=== PATIENT | male | born 1955 | race African-American/Black ===

== ENCOUNTER 2016-10-05 09:47 | Inpatient (IN) | payer OTHER, MEDICAID ==
[~2016-10-05] VITALS: Ht 180.3 cm; Wt 115.1 kg
[2016-10-05 09:53] VITALS: BP 229/128; PULSE 94; RESP 22; TEMP 98.5
[2016-10-05 10:13] VITALS: BP 228/129; PULSE 92; O2SAT 98
[2016-10-05 10:23] LABS: BASOPHIL % 0.5 % (0.0-2.0); EOSINOPHIL # 0.1 TH/MM3 (0-0.4); EOSINOPHIL % 1.2 % (0.0-4.0); HEMATOCRIT 37.2 % (39.0-51.0); HEMO FLAGS DIFF FINAL; LYMPHOCYTE # 1.9 TH/MM3 (1.0-4.8); MEAN CELL VOLUME 92.4 FL (80.0-100.0); MEAN CORPUSCULAR HEMOGLOBIN 30.2 PG (27.0-34.0); MEAN CORPUSCULAR HGB CONC 32.7 % (32.0-36.0); MONO % 9.5 % (0.0-8.0); NEUT % 45.8 % (16.0-70.0); PLATELET COUNT 162 TH/MM3 (150-450); RED BLOOD COUNT 4.03 MIL/MM3 (4.50-5.90); RED CELL DISTRIBUTION WIDTH 13.5 % (11.6-17.2); WHITE BLOOD COUNT 4.3 TH/MM3 (4.0-11.0)
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
[2016-10-05] MEDS ORDERED: ONDANSETRON HCL 4 MG/2 ML VIAL IV PUSH ONE (10:30)
[2016-10-05] MEDS ORDERED: SODIUM CHLOR 0.9% 1000 ML INJ 1,000 ML IV ONE (10:30)
[2016-10-05] MEDS ORDERED: MORPHINE SULFATE 8 MG/ML INJ IV PUSH ONE (10:30)
[2016-10-05 10:34] LABS: APTT (PATIENT) 24.3 SEC (24.3-30.1); PROTHROMBIN TIME - PATIENT 10.7 SEC (9.8-11.6)
[2016-10-05 10:53] VITALS: BP 119/65; PULSE 87
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
[2016-10-05 10:57] LABS: ANION GAP 6 MEQ/L (5-15); AST (GOT) 25 U/L (15-37); BICARBONATE 30.4 MEQ/L (21.0-32.0); BLOOD UREA NITROGEN 20 MG/DL (7-18); CHLORIDE 102 MEQ/L (98-107); GLOMERULAR FILTRATION RATE 69 ML/MIN (>89); POTASSIUM 4.1 MEQ/L (3.5-5.1); SODIUM (NA) 138 MEQ/L (136-145)
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
[2016-10-05 11:03] LABS: ALKALINE PHOSPHATASE 79 U/L (45-117); ALT (GPT) 29 U/L (12-78); TOTAL BILIRUBIN ADULT 0.4 MG/DL (0.2-1.0)
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
[2016-10-05] MEDS ORDERED: IOHEXOL 350 MG/ML 10 ML VIAL (for RAD DIAG) IV ONE (12:15)
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
[2016-10-05] MEDS ORDERED: ACETAMINOPHEN/HYDROcodone 325 MG/5 MG TAB PO PRN (13:30)
[2016-10-05] MEDS ORDERED: SODIUM CHLORIDE 0.9% FLUSH 10 ML FLUSH IV FLUSH PRN (13:30)
[2016-10-05] MEDS ORDERED: MAGNESIUM HYDROXIDE SUSP 30 ML CUP PO PRN (13:30)
[2016-10-05] MEDS ORDERED: ENALAPRILAT 1.25 MG/ML VIAL IV PRN (13:30)
[2016-10-05] MEDS ORDERED: ONDANSETRON HCL 4 MG/2 ML VIAL IV PRN (13:30)
[2016-10-05] MEDS ORDERED: MORPHINE SULFATE 4 MG/ML INJ IV PRN (13:30)
[2016-10-05] MEDS ORDERED: DILT120T PO (13:41)
[2016-10-05] MEDS ORDERED: PRAV40TA2 PO (13:41)
[2016-10-05] MEDS ORDERED: LISI-586 PO (13:41)
[2016-10-05] MEDS ORDERED: VIST50CA PO (13:41)
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
[2016-10-05] MEDS ORDERED: PANTOPRAZOLE SODIUM 40 MG VIAL IVP SCH (14:00)
[2016-10-05 14:13] LABS: BLOOD, URINE NEG (NEG); COMMENT (UR) CULT NOT INDICATED; CULTURE IF INDICATED CULT NOT INDICATED; GLUCOSE,URINE NEG (NEG); KETONE, URINE NEG (NEG); MUCUS URINE FEW /lpf (OCC); NITRITE,URINE NEG (NEG); PH, URINE 5.5 (5.0-8.5); SQUAMOUS EPITHELIAL CELL URINE <1 /hpf (0-5); URINE COLOR YELLOW (YELLW/STRAW)
[2016-10-05 14:39] VITALS: BP 120/68
[2016-10-05 16:00] VITALS: BP 105/73; PULSE 91; RESP 17; TEMP 97.5; O2SAT 100
[2016-10-05] MEDS: DILTIAZEM-CD 240 MG CAP ER PO SCH (17:15)
[2016-10-05] MEDS: PRAVASTATIN SOD 40 MG TAB PO SCH (20:17)
[2016-10-05] MEDS: ACETAMINOPHEN/HYDROcodone 325 MG/5 MG TAB PO PRN (20:19)
[2016-10-05] MEDS ORDERED: DOCUSATE SODIUM 100 MG CAP PO SCH (21:00)
[2016-10-05 21:32] VITALS: BP 153/92; PULSE 101; RESP 22; TEMP 98.3; O2SAT 97
--- NOTE | 2016-10-05 21:53 | EKG ---
Date Performed: 10/05/2016 Time Performed: 10:38:44 PTAGE: 61 years EKG: Sinus rhythm NONSPECIFIC T-WAVE ABNORMALITY BORDERLINE ECG INTERPRETATION BASED ON A DEFAULT AGE OF 42 YEARS PREVIOUS TRACING : 10/08/2006 12.59 DOCTOR: Tila Escalera Interpretating Date/Time 10/05/2016 21:49:14
[2016-10-06] VITALS (9 sets, daily range): BP systolic 126–175; BP diastolic 72–102; PULSE 85–98; RESP 18–20; TEMP 96.3–98; O2SAT 94–100
[2016-10-06] MEDS: ACETAMINOPHEN/HYDROcodone 325 MG/5 MG TAB PO PRN (05:03)
[2016-10-06 05:39] LABS: ALKALINE PHOSPHATASE 74 U/L (45-117); TOTAL BILIRUBIN ADULT 0.5 MG/DL (0.2-1.0)
[2016-10-06 05:41] LABS: ALT (GPT) 27 U/L (12-78); ANION GAP 7 MEQ/L (5-15); AST (GOT) 26 U/L (15-37); BICARBONATE 26.8 MEQ/L (21.0-32.0); BLOOD UREA NITROGEN 16 MG/DL (7-18); CHLORIDE 103 MEQ/L (98-107); GLOMERULAR FILTRATION RATE 69 ML/MIN (>89); POTASSIUM 4.7 MEQ/L (3.5-5.1); SODIUM (NA) 137 MEQ/L (136-145)
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
[2016-10-06] MEDS ORDERED: LACTATED RINGER'S 1000 ML IV PRN (06:45)
[2016-10-06] MEDS ORDERED: POVIDONE IODINE 5% (ANTISEPSIS KIT) 4 APPLICATIONS EACH NARE PRN (06:45)
[2016-10-06] MEDS ORDERED: INSULIN HUMAN REGULAR 1,000 UNITS/10 ML VIAL SQ PRN (06:45)
[2016-10-06] MEDS ORDERED: CHLORHEXIDINE GLUCONATE 2 % 1 PACK (2 CLOTHS) TOPICAL PRN (06:45)
[2016-10-06] MEDS ORDERED: METOPROLOL TARTRATE 25 MG TAB PO PRN (06:45)
[2016-10-06] MEDS ORDERED: SODIUM CHLORID 0.9% 500 ML IV PRN (06:45)
[2016-10-06] MEDS ORDERED: ONDANSETRON HCL 4 MG/2 ML VIAL IV PUSH ONE (08:18)
[2016-10-06] MEDS ORDERED: PROPOFOL 200 MG/20 ML AMP IV ONE (08:18)
[2016-10-06] MEDS ORDERED: NEOSTIGMINE 3 MG/3 ML SYR IV ONE (08:18)
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
[2016-10-06 08:41] LABS: AUTOMATED NEUTROPHIL # 3.8 TH/MM3 (1.8-7.7); BASOPHIL % 0.3 % (0.0-2.0); EOSINOPHIL % 0.1 % (0.0-4.0); HEMATOCRIT 33.8 % (39.0-51.0); HEMO FLAGS DIFF FINAL; LYMPH % 25.7 % (9.0-44.0); LYMPHOCYTE # 1.5 TH/MM3 (1.0-4.8); MEAN CELL VOLUME 92.3 FL (80.0-100.0); MEAN CORPUSCULAR HEMOGLOBIN 30.2 PG (27.0-34.0); MEAN CORPUSCULAR HGB CONC 32.7 % (32.0-36.0); NEUT % 65.9 % (16.0-70.0); PLATELET COUNT 137 TH/MM3 (150-450); RED BLOOD COUNT 3.66 MIL/MM3 (4.50-5.90); RED CELL DISTRIBUTION WIDTH 13.7 % (11.6-17.2); WHITE BLOOD COUNT 5.8 TH/MM3 (4.0-11.0)
[2016-10-06] MEDS: HYDROCHLOROTHIAZIDE 25 MG TAB PO SCH (08:45)
[2016-10-06] MEDS: LISINOPRIL 20 MG TAB PO SCH (08:45)
[2016-10-06] MEDS: DILTIAZEM-CD 240 MG CAP ER PO SCH (08:45)
[2016-10-06] MEDS: DOCUSATE SODIUM 50 MG/SENNA 8.6 MG TAB PO SCH ×2 (08:48→20:31)
[2016-10-06] MEDS ORDERED: NON-FORMULARY DRUG (Lisinopril-Hctz (Zestoretic) 1 TAB) PO SCH (09:00)
[2016-10-06] MEDS ORDERED: XARE10TA PO (09:42)
[2016-10-06] MEDS ORDERED: HYDR-3288 PO (09:42)
[2016-10-06] MEDS ORDERED: WALKER WHEELS/F1 MIS (09:45)
[2016-10-06] MEDS ORDERED: ACETAMINOPHEN 1000 MG/100 ML VIAL IV ONE (09:54)
[2016-10-06] MEDS ORDERED: VANCOMYCIN HCL 1000 MG VIAL ONE (10:22)
[2016-10-06] MEDS ORDERED: ceFAZolin INJ 1,000 MG VIAL ONE (10:22)
[2016-10-06] MEDS ORDERED: GENTAMICIN SULFATE 80 MG/2 ML VIAL ONE (10:23)
--- NOTE | 2016-10-06 11:36 | PD.OP ---
cc: Dewayne Reed MD Operative Report Date of Surgery: October 06, 2016 Preoperative Diagnosis: Comminuted right patella fracture Postoperative Diagnosis: Procedure: Partial patellectomy me with primary patellar tendon repair Anesthesia: Gen. Surgeon: Dewayne Reed Physician Extender(s): CELIO Bradford PA-C The surgical procedure was assisted by my physician promotional advertising assistant. My P.A. presence was necessary throughout this case for the manipulation and positioning of the surgical extremity. My P.A. was assisting me throughout the duration of this procedure. The skill set of a physician promotional advertising assistant was medically necessary to complete this procedure. During the surgical case the operating room surgical technician was working at the back table and the physician promotional advertising assistant was directly assisting me. Operation and Findings: This patient had an injury resulting in displaced comminuted right patella fracture. Informed consent was confirmed preoperatively and informed consent was obtained. I had a detailed discussion with the patient regarding the risks and benefits of surgery. Patient was brought to the operating room and placed on the OR table. IV sedation and GETA were administered by anesthesiologist and IV antibiotics were given prior to incision. A timeout procedure was performed. The operative leg was prepped with alcohol followed by Hibiclens and draped in the usual sterile fashion. The procedure began with a 4-inch incision over the anterior knee. Subcutaneous tissue was dissected with Bovie. At this point the fracture site was visualized. Fracture was now cleaned with curettes. At this point attention was turned to reduction. At this point it was noted that the fracture was very comminuted. Some of the pieces were too small for fixation. A partial patellectomy was now performed. The comminuted fragments of the inferior pole of patella were excised. 3 drill tunnels were created from inferior to superior across the body of the patella. Two #5 FiberWire sutures were now passed through the patellar tendon in a [place] style fashion. The sutures were now passed through the drill holes of the patella. The patella was now reduced to the patellar tendon. Sutures were tensioned and tied. Fluoroscopy confirmed that the patella was in appropriate position. The remainder of the retinaculum was now closed with #1 Vicryls. Subcutaneous tissue was closed with 3-0 Vicryl and skin was closed with enrike. Sterile dressings were applied. The patient placed into a knee immobilizer and was transferred to recovery in stable condition. Needle and sponge counts were correct. Dewayne Reed MD October 06, 2016 11:36
[2016-10-06] MEDS ORDERED: MORPHINE SULFATE 4 MG/ML INJ IV PUSH PRN (11:45)
[2016-10-06] MEDS ORDERED: SODIUM CHLORIDE 0.9% FLUSH 5 ML FLUSH IVF PRN (11:45)
[2016-10-06] MEDS ORDERED: ACETAMINOPHEN/HYDROcodone 325 MG/7.5 MG TAB PO PRN (11:45)
[2016-10-06] MEDS ORDERED: Post-op Orders (for Pharmacy) MISC XX ONE (11:45)
[2016-10-06] MEDS ORDERED: MIDAZOLAM HCL 2 MG/2 ML VIAL ONE (12:05)
[2016-10-06] MEDS ORDERED: fentaNYL CITRATE 250 MCG/5 ML AMP ONE (12:05)
--- NOTE | 2016-10-06 12:09 | RADRPT ---
EXAM DATE/TIME: 10/06/2016 11:18 [facility] COMPARISON: KNEE RIGHT COMPLETE (4VWS), October 05, 2016, 10:28. INDICATIONS : Patellectomy right knee. MEDICAL HISTORY : None. SURGICAL HISTORY : None. ENCOUNTER: Initial ACUITY: 1 day PAIN SCORE: Non-responsive. LOCATION: Right patella FINDINGS: A single cone-down lateral view of the patella was obtained and demonstrates interval removal of the previously noted inferior patellar fracture fragment. Air is now noted in the suprapatella bursa. The re is soft tissue swelling and irregularity. CONCLUSION: Interval postsurgical change. Corey Gagnon MD on October 06, 2016 at 12:06 Board Certified Radiologist. This report was verified electronically.
[2016-10-06] MEDS ORDERED: *morphine SULFATE 8 MG/ML PERIprocedure ONLY ONE (12:18)
[2016-10-06] MEDS: LACTATED RINGER'S 1000 ML INJ 1,000 ML IV SCH (12:30)
--- NOTE | 2016-10-06 13:47 | HHI.PR ---
Subjective Subjective Notes S/P partial patellectomy with patellar tendon repair Complains of knee pain, chest pain with coughing Objective Vitals/I&O Vital Signs Date Time Temp Pulse Resp B/P Pulse Ox O2 Delivery O2 Flow Rate FiO2 10/06/16 12:23 15 10/06/16 12:00 98.5 93 178/92 100 Simple Mask 8 Labs Laboratory Tests Test 10/06/16 04:39 White Blood Count 5.8 Red Blood Count 3.66 Hemoglobin 11.0 Hematocrit 33.8 Mean Corpuscular Volume 92.3 Mean Corpuscular Hemoglobin 30.2 Mean Corpuscular Hemoglobin 32.7 Concent Red Cell Distribution Width 13.7 Platelet Count 137 Mean Platelet Volume 8.0 Neutrophils (%) (Auto) 65.9 Lymphocytes (%) (Auto) 25.7 Monocytes (%) (Auto) 8.0 Eosinophils (%) (Auto) 0.1 Basophils (%) (Auto) 0.3 Neutrophils # (Auto) 3.8 Lymphocytes # (Auto) 1.5 Monocytes # (Auto) 0.5 Eosinophils # (Auto) 0.0 Basophils # (Auto) 0.0 CBC Comment DIFF FINAL Differential Comment Sodium Level 137 Potassium Level 4.7 Chloride Level 103 Carbon Dioxide Level 26.8 Anion Gap 7 Blood Urea Nitrogen 16 Creatinine 1.09 Estimat Glomerular Filtration 69 Rate Random Glucose 123 Calcium Level 9.3 Total Bilirubin 0.5 Aspartate Amino Transf 26 (AST/SGOT) Alanine Aminotransferase 27 (ALT/SGPT) Alkaline Phosphatase 74 Total Protein 7.9 Albumin 3.6 Radiology Last Impressions Knee X-Ray 10/06/16 0000 Signed Impressions: Service Date/Time: Thursday, October 06, 2016 11:18 - CONCLUSION: Interval postsurgical change. Corey Gagnon MD Head CT 10/05/16 1017 Signed Impressions: Service Date/Time: Wednesday, October 05, 2016 11:38 - CONCLUSION: 1. No acute hemorrhage or mass effect. 2. Small air-fluid level and mucosal thickening in the left maxillary sinus which could indicate acute sinusitis. Corey Gagnon MD Chest CT 10/05/16 1017 Signed Impressions: Service Date/Time: Wednesday, October 05, 2016 11:38 - CONCLUSION: 1. Subtle nondisplaced sternal fracture. 2. No acute visceral injury. 3. Status post remote right thoracotomy and pneumonectomy. 4. Apparent scarring with calcification in the left lung. Corey Gagnon MD Cervical Spine CT 10/05/16 1017 Signed Impressions: Service Date/Time: Wednesday, October 05, 2016 11:38 - CONCLUSION: Negative trauma CT. Corey Gagnon MD Abdomen/Pelvis CT 10/05/16 1017 Signed Impressions: Service Date/Time: Wednesday, October 05, 2016 11:38 - CONCLUSION: 1. No acute visceral injury. 2. Remote postsurgical changes status post right thoracotomy. 3. Mild hepatic steatosis. Corey Gagnon MD Chest X-Ray 10/05/16 1001 Signed Impressions: Service Date/Time: Wednesday, October 05, 2016 10:26 - CONCLUSION: 1. Remote postsurgical changes status post right thoracotomy and pneumonectomy. 2. There is apparent chronic scarring and calcification in the left midlung. 3. The heart size is at the upper limits of normal. Corey Gagnon MD Pelvis X-Ray 10/05/16 0000 Signed Impressions: Service Date/Time: Wednesday, October 05, 2016 10:22 - CONCLUSION: Negative trauma CT. Corey Gagnon MD Narrative Exam GENERAL: 61-year-old well-nourished, well developed male lying in bed. SKIN: Warm and dry. HEAD: Atraumatic. Normocephalic. ENT: No nasal bleeding or discharge. Mucous membranes pink and moist. NECK: Trachea midline. No JVD. CARDIOVASCULAR: Regular rate and rhythm. RESPIRATORY: No accessory muscle use. Lungs clear and diminished to auscultation. Breath sounds equal bilaterally. GASTROINTESTINAL: Abdomen soft, non-tender, nondistended. + BS. MUSCULOSKELETAL: Extremities without cyanosis, +1 RLE edema. Right knee Andrey wrap and CKS in place. NEUROLOGICAL: Awake and alert. Normal speech. A/P Assessment and Plan INJURIES: Sternal fx RIGHT patella fx PMHx: HTN, anxiety Diet: Regular Pulmonary: IS, encourage patient use Pain: Opal 1-2 tabs, IV Morphine Activity: OOB. PT ordered. (PWB RLE- CKS at all times) GI: IV Protonix Bowel: Pat-colace 2 tab BID. No BM yet DVT: SCDs -Sternal fx Nondisplaced Nonoperative management Splint cough Echocardiogram pending Pain control -RIGHT patella fx Orthopedics following S/P partial patellectomy with patellar tendon repair PWB RLE, max 50lb- CKS at all times Physical therapy Case management consulted to assist with discharge planning. Plan of care discussed with patient, niece, and RN at bedside Alex Adames October 06, 2016 13:47
[2016-10-06] MEDS: METHOCARBAMOL 500 MG TAB PO SCH ×2 (13:57→22:40)
[2016-10-06] MEDS: PANTOPRAZOLE SOD 40 MG DELAYED RELEASE TAB PO SCH (13:57)
[2016-10-06] MEDS ORDERED: LACTATED RINGER'S 1000 ML INJ 500 ML IV ONE (14:15)
[2016-10-06] MEDS: ceFAZolin 2 GM PREMIX 50 ML IV SCH (18:34)
[2016-10-06] MEDS: PRAVASTATIN SOD 40 MG TAB PO SCH (20:31)
[2016-10-06] MEDS: SODIUM CHLORIDE 0.9% FLUSH 5 ML FLUSH IVF SCH (20:31)
[2016-10-06] MEDS: MAGNESIUM HYDROXIDE SUSP 30 ML CUP PO SCH (22:40)
[2016-10-07] VITALS (7 sets, daily range): BP systolic 118–136; BP diastolic 73–82; PULSE 74–93; RESP 17–19; TEMP 97.6–99; O2SAT 94–96
[2016-10-07] MEDS: ceFAZolin 2 GM PREMIX 50 ML IV SCH ×2 (02:25→11:40)
[2016-10-07] MEDS: LACTATED RINGER'S 1000 ML INJ 1,000 ML IV SCH (02:26)
[2016-10-07] MEDS: ACETAMINOPHEN/HYDROcodone 325 MG/7.5 MG TAB PO PRN ×3 (03:01→20:37)
[2016-10-07] MEDS: METHOCARBAMOL 500 MG TAB PO SCH ×3 (05:37→21:17)
[2016-10-07 05:48] LABS: HEMATOCRIT 31.2 % (39.0-51.0); REVIEW FLAG FINAL
--- NOTE | 2016-10-07 06:45 | PD.ORT.PN ---
Subjective Subjective Remarks POD 1 s/p right patellectomy -doing well. pain controlled. has not been out of bed yet. Objective Vitals Vital Signs Date Time Temp Pulse Resp B/P Pulse Ox O2 Delivery O2 Flow Rate FiO2 10/07/16 04:10 99.0 93 17 124/78 95 10/07/16 00:05 98.4 91 17 118/73 96 10/06/16 20:45 96 21 10/06/16 20:05 97.1 95 18 126/88 95 10/06/16 16:00 96.5 86 18 130/72 94 10/06/16 15:31 100 Nasal Cannula 2.00 10/06/16 13:45 96.3 85 18 142/75 100 10/06/16 13:15 97.6 82 16 108/60 100 Nasal Cannula 2 10/06/16 13:00 72 15 100/55 98 Nasal Cannula 2 10/06/16 12:50 73 15 94/55 98 Nasal Cannula 2 10/06/16 12:40 70 15 85/52 98 Nasal Cannula 2 10/06/16 12:30 75 15 78/54 97 Nasal Cannula 2 10/06/16 12:23 15 10/06/16 12:15 83 15 131/70 96 Nasal Cannula 2 10/06/16 12:00 98.5 93 16 178/92 100 Simple Mask 8 10/06/16 09:45 96.6 92 18 140/92 96 10/06/16 08:00 97.9 94 18 163/102 96 I/O 10/06/16 10/06/16 10/06/16 10/07/16 10/07/16 10/07/16 07:00 15:00 23:00 07:00 15:00 23:00 Intake Total 1880 ml 988 ml 799 ml Output Total 300 ml 50 ml 500 ml 900 ml Balance -300 ml 1830 ml 488 ml -101 ml Intake Oral 480 ml 240 ml 240 ml IV Total 500 ml 748 ml 559 ml Other 900 ml Output Urine Total 300 ml 500 ml 900 ml Estimated Blood Loss 50 ml # Voids 3 # Bowel Movements 0 0 0 Result Diagram: 10/07/16 0538 10/06/16 0439 Imaging Last [address] 10/05/16 1017 Signed Impressions: Service Date/Time: Wednesday, October 05, 2016 11:38 - CONCLUSION: 1. No acute hemorrhage or mass effect. 2. Small air-fluid level and mucosal thickening in the left maxillary sinus which could indicate acute sinusitis. Corey Gagnon MD Chest CT 10/05/16 1017 Signed Impressions: Service Date/Time: Wednesday, October 05, 2016 11:38 - CONCLUSION: 1. Subtle nondisplaced sternal fracture. 2. No acute visceral injury. 3. Status post remote right thoracotomy and pneumonectomy. 4. Apparent scarring with calcification in the left lung. Corey Gagnon MD Cervical Spine CT 10/05/16 1017 Signed Impressions: Service Date/Time: Wednesday, October 05, 2016 11:38 - CONCLUSION: Negative trauma CT. Corey Gagnon MD Abdomen/Pelvis CT 10/05/16 1017 Signed Impressions: Service Date/Time: Wednesday, October 05, 2016 11:38 - CONCLUSION: 1. No acute visceral injury. 2. Remote postsurgical changes status post right thoracotomy. 3. Mild hepatic steatosis. Corey Gagnon MD Chest X-Ray 10/05/16 1001 Signed Impressions: Service Date/Time: Wednesday, October 05, 2016 10:26 - CONCLUSION: 1. Remote postsurgical changes status post right thoracotomy and pneumonectomy. 2. There is apparent chronic scarring and calcification in the left midlung. 3. The heart size is at the upper limits of normal. Corey Gagnon MD Objective Remarks RLE: +knee brace and ice cuff. NVI distally. Assessment & Plan Assessment and Plan 1) Right Patella Fx s/p patellectomy - POD 1 -Partial Wt bearing with knee brace on = 50lbs -no ROM -knee brace at all times -daily dressing changes POD 2 -no leg lifts or quad sets -plan for DC home with [facility] -f/u with Vonnie or [facility] in 2 weeks Nicholas Griffith October 07, 2016 06:45
--- NOTE | 2016-10-07 06:46 | HHI.FF ---
Face to Face Verification Diagnosis: (1) Patellar fracture Physical Therapy Gait training Knee: Knee fracture, Protocol: Right Canvas Knee Splint: At all times Right LE Weight Bearing: Toe Touch WB (50lbs of pressure), No Strengthening, No Quad Sets Right LE Range of Motion: No ROM Nursing Dressing Changes: Daily dressing change, Andrey wrap, 4x4s, Xeroform I have seen patient Brodie Ruiz on 10/07/16. My clinical findings support the need for the requested home health care services because: Ltd mobility - disease progression I certify that my clinical findings support that this patient is homebound because: Post-op weakness Nicholas Griffith October 07, 2016 06:46
[2016-10-07] MEDS ORDERED: SENN1TAB PO (07:03)
[2016-10-07] MEDS ORDERED: MILKSUS PO (07:03)
[2016-10-07] MEDS: DILTIAZEM-CD 240 MG CAP ER PO SCH (08:57)
[2016-10-07] MEDS: LISINOPRIL 20 MG TAB PO SCH (08:58)
[2016-10-07] MEDS: DOCUSATE SODIUM 50 MG/SENNA 8.6 MG TAB PO SCH ×2 (08:58→20:36)
[2016-10-07] MEDS: HYDROCHLOROTHIAZIDE 25 MG TAB PO SCH (08:58)
[2016-10-07] MEDS: SODIUM CHLORIDE 0.9% FLUSH 5 ML FLUSH IVF SCH ×2 (09:00→20:38)
[2016-10-07] MEDS: ENOXAPARIN SODIUM 40 MG/0.4 ML SYRINGE SQ SCH (11:44)
--- NOTE | 2016-10-07 11:47 | EC ---
Study Study Date:10/07/2016 STUDY CONCLUSIONS SUMMARY LEFT VENTRICLE: The cavity size was normal. Wall thickness was normal. Systolic function was normal. The estimated ejection fraction was in the range of 55% to 65%. Wall motion was normal; there were no regional wall motion abnormalities. If LV function is below 40, please consider prescribing an ACEI or ARB or document rationale for non-use. PROCEDURE DATA STUDY STATUS: Elective. Procedure: Transthoracic echocardiography. Image quality was poor. Scanning was performed from the parasternal, apical, and subcostal acoustic windows. Study completion: The patient tolerated the procedure well. Transthoracic echocardiography. M-mode, complete 2D, complete spectral Doppler, and color Doppler. Height: Height: 71in. Weight: Weight: 246.5lb. Body mass index: BMI: 34.4kg/m^2. Body surface area: BSA: 2.31m^2. Patient status: Inpatient. CARDIAC ANATOMY LEFT VENTRICLE: The cavity size was normal. Wall thickness was normal. Systolic function was normal. The estimated ejection fraction was in the range of 55% to 65%. Wall motion was normal; there were no regional wall motion abnormalities. AORTIC VALVE: Trileaflet; normal thickness leaflets. Doppler: Transvalvular velocity was within the normal range. There was no stenosis. No regurgitation. AORTA: Aortic root: The aortic root was normal in size. MITRAL VALVE: Structurally normal valve. Doppler: Transvalvular velocity was within the normal range. There was no evidence for stenosis. No regurgitation. LEFT ATRIUM: The atrium was normal in size. RIGHT VENTRICLE: The cavity size was normal. Wall thickness was normal. PULMONIC VALVE: Doppler: Transvalvular velocity was within the normal range. There was no evidence for stenosis. No regurgitation. TRICUSPID VALVE: Structurally normal valve. Doppler: Transvalvular velocity was within the normal range. No regurgitation. PULMONARY ARTERY: The main pulmonary artery was normal-sized. Systolic pressure was within the normal range. RIGHT ATRIUM: The atrium was normal in size. PERICARDIUM: There was no pericardial effusion. SYSTEMIC VEINS: Inferior vena cava: The vessel was normal in size. Patient weight: 246.5lb _Ejection fraction:_ 65-75% _Fractional shortening:_ 32% up to 5Kg 5-11.5Kg 11.6-22.9Kg 23-45Kg 45-57Kg Aortic Root 7-13 <17 13-22 17-27 17-27 LA diam 6-13 <23 24-38 33-47 37-40 RVID 10-17 7-15 7-15 7-18 8-17 LVIDd 12-22 <32 24-38 33-47 37-40 LVPW 2-4 3-6 5-7 6-8 7-8 IVS 2-4 3-6 5-7 6-8 7-8 BASIC MEASUREMENTS ADULT NORMAL Aortic valve Leaflet separation 21 mm 15-26 BASIC MEASUREMENTS ADULT NORMAL Left ventricle LV internal dimension, ED 39.6 mm 37-56 LV internal dimension, ES 26.8 mm Fractional shortening 32 % 29-45 LV posterior wall, ED 7.7 mm 6-11 Septal/posterior wall ratio, ED 1 Relative wall thickness, ED 0.39 <0.45 Volume, ED, Teichholz 68.3 ml Volume, ES, Teichholz 26.5 ml Ejection fraction, Teichholz *61.2 % 64-83 Stroke volume, Teichholz 41.8 ml Volume index, ED, Teichholz 30 ml/m^2 Volume index, ES, Teichholz 11 ml/m^2 Stroke index, Teichholz 18.1 ml/m^2 Wall mass 87.4 g Wall mass index 37.8 g/m^2 Mass/height 0.48 g/cm Ventricular septum Septal thickness, ED 7.7 mm Aortic valve Leaflet separation 21 mm 15-26 Aorta Root diameter, ED 29 mm 20-37 DOPPLER MEASUREMENTS ADULT NORMAL Aortic valve Peak velocity, S 128 cm/s LEGEND: Mean values are shown as u=mean value. Asterisk (*) landa values outside specified normal range. Prepared and signed by Daniele Machado [id number]
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
[2016-10-07] MEDS: PANTOPRAZOLE SOD 40 MG DELAYED RELEASE TAB PO SCH (14:51)
[2016-10-07] MEDS: PRAVASTATIN SOD 40 MG TAB PO SCH (20:37)
[2016-10-07] MEDS: MAGNESIUM HYDROXIDE SUSP 30 ML CUP PO SCH (20:38)
[2016-10-08] VITALS: BP 140/85; PULSE 80; RESP 20; TEMP 97.8; O2SAT 96
[2016-10-08] MEDS: LACTATED RINGER'S 1000 ML INJ 1,000 ML IV SCH (00:03)
[2016-10-08] MEDS: METHOCARBAMOL 500 MG TAB PO SCH ×2 (05:27→14:50)
[2016-10-08] MEDS: ACETAMINOPHEN/HYDROcodone 325 MG/7.5 MG TAB PO PRN ×2 (05:27→12:11)
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
[2016-10-08 08:00] VITALS: BP 148/82; PULSE 79; RESP 20; TEMP 96.7; O2SAT 93
[2016-10-08] MEDS ORDERED: LACTULOSE SYRUP 20 GM/30 ML CUP PO SCH (09:00)
[2016-10-08] MEDS: HYDROCHLOROTHIAZIDE 25 MG TAB PO SCH (09:11)
[2016-10-08] MEDS: DOCUSATE SODIUM 50 MG/SENNA 8.6 MG TAB PO SCH (09:12)
[2016-10-08] MEDS: LISINOPRIL 20 MG TAB PO SCH (09:12)
[2016-10-08] MEDS: DILTIAZEM-CD 240 MG CAP ER PO SCH (09:12)
[2016-10-08] MEDS: SODIUM CHLORIDE 0.9% FLUSH 5 ML FLUSH IVF SCH (09:16)
[2016-10-08] MEDS: ENOXAPARIN SODIUM 40 MG/0.4 ML SYRINGE SQ SCH (11:58)
[2016-10-08 12:00] VITALS: BP 141/83; PULSE 89; RESP 20; TEMP 96.9; O2SAT 90
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
[2016-10-08] MEDS: PANTOPRAZOLE SOD 40 MG DELAYED RELEASE TAB PO SCH (14:50)
[2016-10-18] MEDS ORDERED: COMMODE 3-IN-11 MIS (11:50)
[2016-10-18] MEDS ORDERED: WHEEMIS3 (11:50)
[2016-10-18] MEDS ORDERED: GETGO ROLLING W1 MI1 (11:50)
[2016-10-18] MEDS ORDERED: shower tub chair (11:57)
[2016-10-22] MEDS ORDERED: LIDO5DIS35 T-DERMAL (09:48)
[2016-10-22] MEDS ORDERED: CARD240C6 PO (09:48)
[2016-10-22] MEDS ORDERED: FERR325T PO (09:48)
[2016-10-22] MEDS ORDERED: FAMO20TA2 PO (09:48)
[2016-10-22] MEDS ORDERED: METO25TA3 PO (09:48)
[2016-10-22] MEDS ORDERED: METO10TA PO (09:48)
[2016-10-22] MEDS ORDERED: PRAV40TA2 PO (09:48)
[2016-10-22] MEDS ORDERED: ACET325T PO (09:48)
[2016-10-22] MEDS ORDERED: XARE10TA PO (09:48)
[2016-10-22] MEDS ORDERED: SENN1TAB PO (09:48)
[2016-10-22] MEDS ORDERED: VITA500T PO (09:48)
[2016-10-22] MEDS ORDERED: LISI-586 PO (09:48)
== END 2016-10-08 15:56 | DRG 488 ==
LOC: NEPC 09:47 → NEDA 13:03 → N06B 14:37
PROVIDERS: ADMIT Surgery; ATTEND Surgery
PROC: 0LMR0ZZ Reattachment of Left Knee Tendon, Open Approach (ICD-10-PCS; 2016-10-06)
PROC: 0QBD0ZZ Excision of Right Patella, Open Approach (ICD-10-PCS; principal; 2016-10-06 10:36)
DX: S82.031A Displaced transverse fracture of right patella, initial encounter for closed fracture (principal); S22.22XA Fracture of body of sternum, initial encounter for closed fracture; I10 Essential (primary) hypertension; V43.52XA Car driver injured in collision with other type car in traffic accident, initial encounter; Y92.410 Unspecified street and highway as the place of occurrence of the external cause; Y93.89 Activity, other specified; Y99.9 Unspecified external cause status; Z90.2 Acquired absence of lung [part of]; F41.9 Anxiety disorder, unspecified
CPT/HCPCS: 70450; 71010; 71260; 72125; 72170; 73560; 73564; 74177; 76000; 80053; 81001; 83690; 84484; 85014; 85018; 85025; 85610; 85730; 93005; 93306; 94150; 96361; 96374; 96375; C9113; J0131; J0690; J1580; J1650; J2250; J2270; J2405; J2710; J3010; J3370; J7030; J7120; L1830; Q9967

== ENCOUNTER → 2016-10-22 | Outpatient (CLI) | payer MEDICAID, OTHER ==
[~2016-10-22] VITALS: Ht 182.9 cm; Wt 107.0 kg
[~2016-10-22] MED LIST: ACET325T PO; CARD240C6 PO; COMMODE 3-IN-11 MIS; DILT120T PO; FAMO20TA2 PO; FERR325T PO; GETGO ROLLING W1 MI1; HYDR-3288 PO; LIDO5DIS35 T-DERMAL; LISI-586 PO; METO10TA PO; METO25TA3 PO; MILKSUS PO; PRAV40TA2 PO; PROPOFOL 200 MG/20 ML AMP IV ONE; SENN1TAB PO; VITA500T PO; WALKER WHEELS/F1 MIS; WHEEMIS3; XARE10TA PO; shower tub chair
--- NOTE | 2016-10-22 11:48 | PD.PROCEDR ---
GI Procedure PROCEDURE PERFORMED Colonoscopy INDICATION FOR PROCEDURE Anemia, ileus PROCEDURE: The procedure, risks and benefits were discussed with Mr. Ruiz and informed consent was obtained. Anesthesia sedated him with Diprivan. He was placed in the left lateral decubitus position. Colonoscopy: The Pentax videoscope was introduced through the rectum and advanced to cecum where the ileocecal valve and appendiceal orifice were identified. Retroflexion was performed in the rectum. Colonic prep was fair FINDINGS: Colonic withdrawal time greater than 6 minutes as the scope was slowly withdrawn colonic mucosa was carefully inspected and was noted to be unremarkable and within normal limits the whole way through retroflexion did reveal moderate size internal hemorrhoid rectal examination otherwise unremarkable ESTIMATED BLOOD LOSS: None SPECIMENS REMOVED: None COMPLICATIONS: None IMPRESSION: Internal hemorrhoids otherwise normal colonoscopy PLAN: High fiber diet Follow-up with GI in 4 weeks Iam Kendall MD October 22, 2016 11:48
[2016-10-22 12:20] VITALS: BP 140/73; PULSE 83; RESP 20; TEMP 98.3; O2SAT 100
== END ==
LOC: HEND 09:16
PROVIDERS: ATTEND Internal Medicine Gastroenterology
DX: D64.9 Anemia, unspecified (principal); K56.7 Ileus, unspecified; K64.8 Other hemorrhoids

== ENCOUNTER 2016-12-22 12:37 | Emergency (ER) | payer MEDICAID ==
[~2016-12-22] VITALS: Ht 180.3 cm; Wt 110.0 kg
[~2016-12-22 12:37] MED LIST changes: -DILT120T PO; -HYDR-3288 PO; -MILKSUS PO; -PROPOFOL 200 MG/20 ML AMP IV ONE
[2016-12-22 12:49] VITALS: BP 142/75; PULSE 88; RESP 20; TEMP 98; O2SAT 99
[2016-12-22 12:59] VITALS: BP 102/63; PULSE 88
[2016-12-22] MEDS ORDERED: SODIUM CHLOR 0.9% 1000 ML INJ 1,000 ML IV ONE (13:00)
[2016-12-22 13:07] VITALS: BP 95/55; PULSE 84; RESP 24; O2SAT 95
--- NOTE | 2016-12-22 13:07 | PD ---
HPI Chief Complaint: Syncope/Near-Syncope Time Seen by Provider: 12:47 Travel History International Travel<30 days: No Contact w/Intl Traveler<30days: No Traveled to known affect area: No History of Present Illness HPI This patient was shopping and had a presyncopal episode. He felt like he was, black out and was lightheaded. He did not actually lose consciousness according to him. Paramedics were called and found him with a blood pressure of 80/40. And a heart rate of 40. He did not have chest pain or headache or any other neurologic complaint. He was given IV fluid in route and at this time feels improved. He denies dizziness or lightheadedness. His blood pressure is 148 systolic on arrival. Symptoms severity was moderate. No obvious alleviating factors. Duration 15 minutes PFSH Past Medical History Arthritis: No Asthma: No Autoimmune Disease: No Anxiety: No Depression: No Heart Rhythm Problems: No Cancer: No Cardiovascular Problems: Yes (htn) High Cholesterol: No Chemotherapy: No Chest Pain: No Congestive Heart Failure: No COPD: No Cerebrovascular Accident: No Diabetes: No Endocrine: No GERD: No Genitourinary: No Hepatitis: No Hiatal Hernia: No Hypertension: Yes Immune Disorder: No Kidney Stones: No Musculoskeletal: No Neurologic: No Psychiatric: No Reproductive: No Respiratory: Yes Immunizations Current: No Migraines: No Radiation Therapy: No Renal Failure: No Seizures: No Sickle Cell Disease: No Sleep Apnea: No Thyroid Disease: No Ulcer: No Past Surgical History Abdominal Surgery: No AICD: No Arteriovenous Shunt: No Cardiac Surgery: No Ear Surgery: No Endocrine Surgery: No Eye Surgery: No Genitourinary Surgery: No Gynecologic Surgery: No Insulin Pump: No Joint Replacement: No Oral Surgery: No Pacemaker: No Thoracic Surgery: Yes Social History Alcohol Use: No Tobacco Use: No Substance Use: No Allergies-Medications (Allergen,Severity, Reaction): Coded Allergies: No Known Allergies (Unverified , 12/22/16) Reported Meds & Prescriptions Reported Meds & Active Scripts Active Metoprolol Tartrate 25 Mg Tab 12.5 Mg PO Q12HR 30 Days Metoclopramide (Metoclopramide HCl) 10 Mg Tab 10 Mg PO ACHS 14 Days Famotidine 20 Mg Tab 20 Mg PO BID 30 Days Cardizem CD 24 HR (Diltiazem CD 24 HR) 240 Mg Caper 240 Mg PO DAILY 30 Days Xarelto (Rivaroxaban) 10 Mg Tab 10 Mg PO DAILY resume after colonscopy with close supervision with Dr. Grady and Ortho Dr. Shankar Pravastatin 40 Mg Tab 40 Mg PO HS Zestoretic (Lisinopril-Hctz) 20-12.5 Mg Tab 1 Tab PO DAILY [shower tub chair] Ea Wheelchair (Device) 1 Mis Mis 1 Ea .ROUTE DIRECTED Commode 3-in-1 (Device) 1 Mis Mis 1 Ea .ROUTE DIRECTED Walker Rolling/GetGo (Device) 1 Mis Mis 1 Ea .ROUTE DIRECTED Walker with Front Wheels (Device) 1 Mis Mis 1 Ea .ROUTE DIRECTED Reported Ferrous Sulfate 325 Mg (65 Mg Iron) Tablet 325 Mg PO DAILY Review of Systems General / Constitutional: No: Fever Eyes: No: Visual changes HENT: Positive: Lightheadedness, No: Headaches Cardiovascular: No: Chest Pain or Discomfort Respiratory: No: Shortness of Breath Gastrointestinal: No: Abdominal Pain Genitourinary: No: Dysuria Musculoskeletal: Positive: Weakness, No: Pain Skin: No Rash Neurologic: Positive: Weakness, Dizziness Psychiatric: No: Depression Endocrine: No: Polydipsia Hematologic/Lymphatic: No: Easy Bruising Physical Exam Narrative GENERAL: Well-nourished, well-developed patient in no apparent distress. SKIN: Focused skin assessment reveals no rash and nodules. Skin is Warm and dry. HEAD: Atraumatic. Normocephalic. EYES: Pupils equal and round. No scleral icterus. No injection or drainage. ENT: No nasal bleeding or discharge. Mucous membranes pink and moist. NECK: Trachea midline. No JVD. CARDIOVASCULAR: Regular rate and rhythm. No murmur appreciated. RESPIRATORY: No accessory muscle use. Clear to auscultation. Breath sounds equal bilaterally. GASTROINTESTINAL: Abdomen soft, non-tender, nondistended. Hepatic and splenic margins not palpable. MUSCULOSKELETAL: No obvious deformities. No clubbing. No cyanosis. No edema. NEUROLOGICAL: Awake and alert. No obvious cranial nerve deficits. Motor grossly within normal limits. Normal speech. PSYCHIATRIC: Appropriate mood and affect; insight and judgment normal. Data Data Last Documented VS Vital Signs Date Time Temp Pulse Resp B/P Pulse Ox O2 Delivery O2 Flow Rate FiO2 12/22/16 15:05 77 24 128/66 100 Room Air 12/22/16 12:49 98.0 Orders Sodium Chlor 0.9% 1000 Ml Inj (Ns 1000 M (12/22/16 13:00) Iv Access Insert/Monitor (12/22/16 12:54) Complete Blood Count With Diff (12/22/16 12:54) Basic Metabolic Panel (Bmp) (12/22/16 12:54) Cutter Helper / Telemetry RONNY.Q8H (12/22/16 12:54) Electrocardiogram (12/22/16 ) Labs Laboratory Tests Test 12/22/16 13:00 White Blood Count 4.3 TH/MM3 Red Blood Count 3.50 MIL/MM3 Hemoglobin 10.8 GM/DL Hematocrit 33.2 % Mean Corpuscular Volume 94.8 FL Mean Corpuscular Hemoglobin 31.0 PG Mean Corpuscular Hemoglobin 32.7 % Concent Red Cell Distribution Width 14.1 % Platelet Count 193 TH/MM3 Mean Platelet Volume 7.5 FL Neutrophils (%) (Auto) 37.2 % Lymphocytes (%) (Auto) 52.3 % Monocytes (%) (Auto) 8.3 % Eosinophils (%) (Auto) 2.0 % Basophils (%) (Auto) 0.2 % Neutrophils # (Auto) 1.6 TH/MM3 Lymphocytes # (Auto) 2.2 TH/MM3 Monocytes # (Auto) 0.4 TH/MM3 Eosinophils # (Auto) 0.1 TH/MM3 Basophils # (Auto) 0.0 TH/MM3 CBC Comment DIFF FINAL Differential Comment Sodium Level 140 MEQ/L Potassium Level 3.6 MEQ/L Chloride Level 106 MEQ/L Carbon Dioxide Level 24.4 MEQ/L Anion Gap 10 MEQ/L Blood Urea Nitrogen 15 MG/DL Creatinine 1.55 MG/DL Estimat Glomerular Filtration 56 ML/MIN Rate Random Glucose 178 MG/DL Calcium Level 8.6 MG/DL [facility] Medical Decision Making Medical Screen Exam Complete: Yes Emergency Medical Condition: Yes Medical Record Reviewed: Yes Differential Diagnosis Vasovagal episode, cardiac arrhythmia, dehydration Narrative Course I have reviewed the patient's electronic medical record. IV placed I gave him 1 L normal saline IV I reviewed his EKG which shows sinus rhythm without ST elevation or ectopy Extended cardiac monitoring shows sinus rhythm without ectopy CBC shows minor anemia Metabolic profile shows mild renal insufficiency Patient is neurologically intact Lab studies are similar to prior, actually a little bit improved Stable for outpatient follow-up On reassessment he feels fine Blood pressure normal I believe he had a vasovagal episode Diagnosis Primary Impression: Vasovagal episode Additional Impression: Pre-syncope Additional Instructions: The patient was advised to follow up with their physician and return if they worsen. Check and record blood pressure daily Med/Other Pt SpecificInfo: Other Disposition: 01 DISCHARGE HOME Condition: Stable Johnny Ramos MD Dec 22, 2016 13:07
[2016-12-22 13:11] LABS: AUTOMATED NEUTROPHIL # 1.6 TH/MM3 (1.8-7.7); BASOPHIL % 0.2 % (0.0-2.0); EOSINOPHIL # 0.1 TH/MM3 (0-0.4); HEMATOCRIT 33.2 % (39.0-51.0); HEMO FLAGS DIFF FINAL; LYMPH % 52.3 % (9.0-44.0); LYMPHOCYTE # 2.2 TH/MM3 (1.0-4.8); MEAN CELL VOLUME 94.8 FL (80.0-100.0); MEAN CORPUSCULAR HGB CONC 32.7 % (32.0-36.0); MONO % 8.3 % (0.0-8.0); NEUT % 37.2 % (16.0-70.0); PLATELET COUNT 193 TH/MM3 (150-450); RED CELL DISTRIBUTION WIDTH 14.1 % (11.6-17.2); WHITE BLOOD COUNT 4.3 TH/MM3 (4.0-11.0)
[2016-12-22] MEDS ORDERED: FERR325T8 PO (13:15)
[2016-12-22 13:29] LABS: BICARBONATE 24.4 MEQ/L (21.0-32.0); POTASSIUM 3.6 MEQ/L (3.5-5.1)
[2016-12-22 14:04] VITALS: BP 99/57; PULSE 81; RESP 20; O2SAT 100
[2016-12-22 15:05] VITALS: BP 128/66; PULSE 77; RESP 24; O2SAT 100
--- NOTE | 2016-12-22 18:51 | EKG ---
Date Performed: 12/22/2016 Time Performed: 12:52:10 PTAGE: 61 years EKG: Sinus rhythm T-WAVE ABNORMALITY, CONSIDER ANTERIOR ISCHEMIA ABNORMAL ECG NO PREVIOUS TRACING DOCTOR: Alvarez Bean Interpretating Date/Time 12/22/2016 18:49:59
== END 2016-12-22 16:40 | disposition home or self-care (01) ==
LOC: NEPC 12:37
DX: R55 Syncope and collapse (principal); N28.9 Disorder of kidney and ureter, unspecified; D64.9 Anemia, unspecified; I10 Essential (primary) hypertension; R94.31 Abnormal electrocardiogram [ECG] [EKG]; Z79.899 Other long term (current) drug therapy
CPT/HCPCS: 80048; 85025; 93005; 96360; 96361; 99284; J7030

== ENCOUNTER 2017-01-09 12:59 | Observation (INO) | payer MEDICAID ==
[2017-01-09] VITALS (7 sets, daily range): BP systolic 91–143; BP diastolic 46–85; PULSE 93–110; RESP 16–20; TEMP 97.8–98.3; O2SAT 97–100
[~2017-01-09 12:59] MED LIST changes: -ACET325T PO; -FERR325T PO; +FERR325T8 PO; -LIDO5DIS35 T-DERMAL; -SENN1TAB PO; -VITA500T PO
[2017-01-09] MEDS ORDERED: SODIUM CHLOR 0.9% 1000 ML INJ 1,000 ML IV ONE ×2 (13:02→15:00)
[2017-01-09] MEDS ORDERED: SODIUM CHLORIDE 0.9% FLUSH 10 ML FLUSH IVF PRN (13:15)
[2017-01-09 13:42] LABS: BASOPHIL % 0.3 % (0.0-2.0); EOSINOPHIL # 0.1 TH/MM3 (0-0.4); EOSINOPHIL % 0.9 % (0.0-4.0); HEMATOCRIT 36.4 % (39.0-51.0); HEMO FLAGS DIFF FINAL; LYMPH % 35.2 % (9.0-44.0); LYMPHOCYTE # 2.7 TH/MM3 (1.0-4.8); MEAN CELL VOLUME 93.2 FL (80.0-100.0); MEAN CORPUSCULAR HEMOGLOBIN 30.6 PG (27.0-34.0); MEAN CORPUSCULAR HGB CONC 32.8 % (32.0-36.0); MONO % 10.8 % (0.0-8.0); NEUT % 52.8 % (16.0-70.0); PLATELET COUNT 205 TH/MM3 (150-450); RED BLOOD COUNT 3.91 MIL/MM3 (4.50-5.90); RED CELL DISTRIBUTION WIDTH 13.9 % (11.6-17.2); WHITE BLOOD COUNT 7.6 TH/MM3 (4.0-11.0)
[2017-01-09 13:50] LABS: APTT (PATIENT) 22.9 SEC (24.3-30.1); PROTHROMBIN TIME - PATIENT 10.9 SEC (9.8-11.6)
--- NOTE | 2017-01-09 14:00 | RADRPT ---
EXAM DATE/TIME: 01/09/2017 13:20 [place] COMPARISON: CHEST SINGLE AP, October 05, 2016, 10:26. INDICATIONS : Palpitations MEDICAL HISTORY : Infection in right lung SURGICAL HISTORY : Lobectomy. ENCOUNTER: Initial ACUITY: 1 day PAIN SCORE: 0/10 LOCATION: chest FINDINGS: Today's exam is compared to the prior study. The left lung remains clear and well-aerated. There are stable granulomas in the left midlung. There is stable deformity of the right hemithorax with no new or significant changes compared to the prior exam. Heart size is stable. There is no evidence of a le ft pleural effusion. The bony structures are stable. CONCLUSION: No acute disease. No significant change has occurred. Jaskaran Back MD on January 09, 2017 at 13:57 Board Certified Radiologist. This report was verified electronically.
[2017-01-09 14:01] LABS: ANION GAP 8 MEQ/L (5-15); BICARBONATE 27.9 MEQ/L (21.0-32.0); BLOOD UREA NITROGEN 21 MG/DL (7-18); CHLORIDE 100 MEQ/L (98-107); GLOMERULAR FILTRATION RATE 41 ML/MIN (>89); MAGNESIUM 2.3 MG/DL (1.5-2.5); SODIUM (NA) 136 MEQ/L (136-145)
[2017-01-09 14:03] LABS: POTASSIUM 3.8 MEQ/L (3.5-5.1)
[2017-01-09 14:09] LABS: CREATINE KINASE 148 U/L (39-308)
--- NOTE | 2017-01-09 14:18 | PD ---
HPI Chief Complaint: Syncope/Near-Syncope Time Seen by Provider: 13:02 Travel History International Travel<30 days: No Contact w/Intl Traveler<30days: No Traveled to known affect area: No History of Present Illness HPI 61-year-old male arrives to the ER due to loss of consciousness. He was with his friend in the passenger seat of a car when he felt lightheaded and then became unresponsive. The patient reports a similar episode happened in the past. Patient was admitted here for a sternum and patella fracture and was discharged approximately 3 months ago. Interval rehabilitation until approximately one month prior is reported. The patient was seen here just under 2 weeks prior for vasovagal syncope. In the ER he denies medical complaints specifically nausea, shortness of breath, chest pain, dizziness lightheadedness. EMS reports on scene the blood pressure was 70 systolic with a heart rate of about 100. Blood sugar was normal. He received about 600 cc normal saline en route. PFSH Past Medical History Arthritis: No Asthma: No Autoimmune Disease: No Anxiety: No Depression: No Heart Rhythm Problems: No Cancer: No Cardiovascular Problems: Yes (htn) High Cholesterol: No Chemotherapy: No Chest Pain: No Congestive Heart Failure: No COPD: No Cerebrovascular Accident: No Diabetes: No Endocrine: No Gastrointestinal Disorders: Yes GERD: No Genitourinary: No Hepatitis: No Hiatal Hernia: No Hypertension: Yes Immune Disorder: No Kidney Stones: No Medical other: Yes Musculoskeletal: No Neurologic: No Psychiatric: No Reproductive: No Respiratory: Yes (tuberculosis) Immunizations Current: No Migraines: No Radiation Therapy: No Renal Failure: No Seizures: No Sickle Cell Disease: No Sleep Apnea: No Thyroid Disease: No Ulcer: No Past Surgical History Abdominal Surgery: No AICD: No Arteriovenous Shunt: No Cardiac Surgery: No Ear Surgery: No Endocrine Surgery: No Eye Surgery: No Genitourinary Surgery: No Gynecologic Surgery: No Insulin Pump: No Joint Replacement: No Oral Surgery: No Pacemaker: No Thoracic Surgery: Yes (left lobectomy) Other Surgery: Yes Social History Alcohol Use: Yes (PT DENIES, BUT FAMILY STATES + HX OF) Tobacco Use: No Substance Use: No Allergies-Medications (Allergen,Severity, Reaction): Coded Allergies: No Known Allergies (Unverified , 12/22/16) Reported Meds & Prescriptions Reported Meds & Active Scripts Active Metoprolol Tartrate 25 Mg Tab 12.5 Mg PO Q12HR 30 Days Metoclopramide (Metoclopramide HCl) 10 Mg Tab 10 Mg PO ACHS 14 Days Famotidine 20 Mg Tab 20 Mg PO BID 30 Days Cardizem CD 24 HR (Diltiazem CD 24 HR) 240 Mg Caper 240 Mg PO DAILY 30 Days Xarelto (Rivaroxaban) 10 Mg Tab 10 Mg PO DAILY resume after colonscopy with close supervision with Dr. Grady and Ortho Dr. Shankar Pravastatin 40 Mg Tab 40 Mg PO HS Zestoretic (Lisinopril-Hctz) 20-12.5 Mg Tab 1 Tab PO DAILY Reported Ferrous Sulfate 325 Mg (65 Mg Iron) Tablet 325 Mg PO HS Review of Systems Except as stated in HPI: all other systems reviewed are Neg Physical Exam Narrative GENERAL: 61-year-old male pleasant well-nourished well-developed SKIN: Warm and dry. HEAD: Atraumatic. Normocephalic. EYES: Pupils equal and round. No scleral icterus. No injection or drainage. ENT: No nasal bleeding or discharge. Mucous membranes pink and moist. NECK: Trachea midline. No JVD. CARDIOVASCULAR: Regular rate and rhythm. RESPIRATORY: No accessory muscle use. Clear to auscultation. Breath sounds equal bilaterally. GASTROINTESTINAL: Abdomen soft, non-tender, nondistended. Hepatic and splenic margins not palpable. MUSCULOSKELETAL: Extremities without clubbing, cyanosis, or edema. No obvious deformities. NEUROLOGICAL: Awake and alert. No obvious cranial nerve deficits. Motor grossly within normal limits. Five out of 5 muscle strength in the arms and legs. Normal speech. PSYCHIATRIC: Appropriate mood and affect; insight and judgment normal. Data Data Last Documented VS Vital Signs Date Time Temp Pulse Resp B/P Pulse Ox O2 Delivery O2 Flow Rate FiO2 01/09/17 15:43 103 16 143/85 97 01/09/17 13:10 Room Air 01/09/17 13:01 97.8 Orthostatic hypotension noted Orders Electrocardiogram (01/09/17 13:02) Basic Metabolic Panel (Bmp) (01/09/17 13:02) Complete Blood Count With Diff (01/09/17 13:02) Magnesium (Mg) (01/09/17 13:02) Ckmb (Isoenzyme) Profile (01/09/17 13:02) Troponin I (01/09/17 13:02) Act Partial Throm Time (Ptt) (01/09/17 13:02) Prothrombin Time / Inr (Pt) (01/09/17 13:02) Chest, Single Ap (01/09/17 13:02) Ecg Monitoring (01/09/17 13:02) Iv Access Insert/Monitor (01/09/17 13:02) Oximetry (01/09/17 13:02) Sodium Chloride 0.9% Flush (Ns Flush) (01/09/17 13:15) Sodium Chlor 0.9% 1000 Ml Inj (Ns 1000 M (01/09/17 13:02) Orthostatic Vital Signs (01/09/17 13:02) CKMB (01/09/17 13:10) CKMB% (01/09/17 13:10) Ventilation & Perfusion Scan (01/09/17 ) Sodium Chlor 0.9% 1000 Ml Inj (Ns 1000 M (01/09/17 15:00) Admit Order (Ed Use Only) (01/09/17 16:18) Place In Observation (01/09/17 ) Vital Signs (Adult) Q4H (01/09/17 16:18) Activity Oob With Assistance (01/09/17 16:18) Air Moving Technician / Telemetry .CONTINUOUS (01/09/17 16:18) Diet Regular Basic (01/09/17 Dinner) Sodium Chlor 0.9% 1000 Ml Inj (Ns 1000 M (01/09/17 16:18) Sodium Chloride 0.9% Flush (Ns Flush) (01/09/17 16:30) Sodium Chloride 0.9% Flush (Ns Flush) (01/09/17 21:00) Acetaminophen (Tylenol) (01/09/17 16:30) Ondansetron Inj (Zofran Inj) (01/09/17 16:30) Basic Metabolic Panel (Bmp) (01/10/17 06:00) Resp Oxygen Eric C Titrat 1-4 L (01/09/17 ) Scd Bilateral/Knee High RONNY.BID (01/09/17 16:18) Naloxone Inj (Narcan Inj) (01/09/17 16:30) Docusate Sodium-Senna (Pat-Colace) (01/09/17 21:00) Magnesium Hydroxide Liq (Milk Of Magnesi (01/09/17 16:30) Sennosides (Senokot) (01/09/17 16:30) Bisacodyl Supp (Dulcolax Supp) (01/09/17 16:30) Lactulose Liq (Lactulose Liq) (01/09/17 16:30) Labs Laboratory Tests Test 01/09/17 13:10 White Blood Count 7.6 TH/MM3 Red Blood Count 3.91 MIL/MM3 Hemoglobin 11.9 GM/DL Hematocrit 36.4 % Mean Corpuscular Volume 93.2 FL Mean Corpuscular Hemoglobin 30.6 PG Mean Corpuscular Hemoglobin 32.8 % Concent Red Cell Distribution Width 13.9 % Platelet Count 205 TH/MM3 Mean Platelet Volume 8.1 FL Neutrophils (%) (Auto) 52.8 % Lymphocytes (%) (Auto) 35.2 % Monocytes (%) (Auto) 10.8 % Eosinophils (%) (Auto) 0.9 % Basophils (%) (Auto) 0.3 % Neutrophils # (Auto) 4.0 TH/MM3 Lymphocytes # (Auto) 2.7 TH/MM3 Monocytes # (Auto) 0.8 TH/MM3 Eosinophils # (Auto) 0.1 TH/MM3 Basophils # (Auto) 0.0 TH/MM3 CBC Comment DIFF FINAL Differential Comment Prothrombin Time 10.9 SEC Prothromb Time International 1.0 RATIO Ratio Activated Partial 22.9 SEC Thromboplast Time Sodium Level 136 MEQ/L Potassium Level 3.8 MEQ/L Chloride Level 100 MEQ/L Carbon Dioxide Level 27.9 MEQ/L Anion Gap 8 MEQ/L Blood Urea Nitrogen 21 MG/DL Creatinine 2.01 MG/DL Estimat Glomerular Filtration 41 ML/MIN Rate Random Glucose 128 MG/DL Calcium Level 9.3 MG/DL Magnesium Level 2.3 MG/DL Total Creatine Kinase 148 U/L Creatine Kinase MB 1.1 NG/ML Troponin I LESS THAN 0.02 NG/ML MDM Medical Decision Making Medical Screen Exam Complete: Yes Emergency Medical Condition: Yes Medical Record Reviewed: Yes Differential Diagnosis Anemia, acute kidney injury, PE, arrhythmia, vasovagal syncope, electrolyte imbalance Narrative Course CBC & BMP Diagram 01/09/17 13:10 Troponin < 0.02 EKG: Rate 103, ST changes in various leads noted potentially concerning for ischemia, no ST elevation NM Coags normal The patient was reassessed at about 3:55 PM. The depth point he reported feeling somewhat better although his heart rate was about 105 or so. The case was discussed with his daughter who notes that 3 now the patient has had sudden onset of loss of consciousness evidently while the patient was sitting still. In this scenario 23 are obs for syncope evaluation is considered reasonable. The patient agreeable with plan. Gradual worsening of renal function is noted over the past 3 months with a creatinine in September of 1.0. Case discussed with Dr. Quezada for hospitalist service. Diagnosis Primary Impression: KENDAL (acute kidney injury) Additional Impression: Syncope Qualified Code: R55 - Syncope, unspecified syncope type Admitting Information Admitting Physician Requests: Observation Chris Hinson MD Jan 09, 2017 14:18
[2017-01-09 14:22] LABS: CKMB 1.1 NG/ML (0.5-3.6)
--- NOTE | 2017-01-09 15:40 | RADRPT ---
EXAM DATE/TIME: 01/09/2017 14:55 [facility] COMPARISON: CHEST SINGLE AP, January 09, 2017, 13:20. INDICATIONS : Short of breath. DOSE: 8.1 mCi Tc99m MAA IV 1.2 mCi Tc99m DTPA aerosol MEDICAL HISTORY : Hypertension. SURGICAL HISTORY : Lobectomy. Left lung removed. ENCOUNTER: Initial ACUITY: 1 day PAIN SCALE: 1/10 LOCATION: Bilateral chest TECHNIQUE: Following five minutes of tidal breathing of DTPA aerosol, planar images of the lungs were performed in eight projections. The patient was then injected with MAA, and eight-view perfusion scan was perf ormed. Patient is status post a right pneumonectomy with collapse of the right rib cage. FINDINGS: There is a homogeneous pattern of aerosol delivery to the periphery of the left lung. No focal venti latory defects are seen. The perfusion lung scan demonstrates a homogenous pattern of uptake in the left lung. No segmental o r subsegmental defects are seen. CONCLUSION: Unremarkable VQ scan of the left lung. Low probability for PE. Jaskaran Back MD on January 09, 2017 at 15:37 Board Certified Radiologist. This report was verified electronically.
[2017-01-09] MEDS ORDERED: BISACODYL 10 MG SUPP RECTAL PRN (16:30)
[2017-01-09] MEDS ORDERED: SODIUM CHLORIDE 0.9% FLUSH 10 ML FLUSH IV FLUSH PRN (16:30)
[2017-01-09] MEDS ORDERED: MAGNESIUM HYDROXIDE SUSP 30 ML CUP PO PRN (16:30)
[2017-01-09] MEDS ORDERED: LACTULOSE SYRUP 20 GM/30 ML CUP PO PRN (16:30)
[2017-01-09] MEDS ORDERED: SENNOSIDES 8.6 MG TAB PO PRN (16:30)
[2017-01-09] MEDS ORDERED: ONDANSETRON HCL 4 MG/2 ML VIAL IVP PRN (16:30)
[2017-01-09] MEDS ORDERED: ACETAMINOPHEN 325 MG TAB PO PRN (16:30)
[2017-01-09] MEDS ORDERED: NALOXONE HCL 0.4 MG/ML AMP IV PRN (16:30)
--- NOTE | 2017-01-09 16:50 | HHI.HP ---
HPI Service [facility] Primary Care Physician No Primary Care Physician Admission Diagnosis Syncope Diagnoses: Chief Complaint: lightheadness Travel History International Travel<30 Days: No Contact w/Intl Traveler <30 Da: No Traveled to Known Affected Are: No History of Present Illness Written by KARAN Cobos acting as scribe for Dr. Ford] on 01/09/17 at 16: 44. This note was transcribed by scribe KARAN Cobos. I, Dr. Emmanuel Quezada personally performed the history, physical exam, and medical decision making; and confirmed the accuracy of the information in the transcribed note. Authenticated by Dr. Emmanuel Quezada on 01/09/17 at 22:48. 61 y/o male with a medical history of HTN, HLD, and Anemia presented to the ED with complaints of almost passing out in his friends truck. He states his friend was driving with the windows down and he began to get overheated, lightheaded, sweating a lot and then he vomited. He states this is not the first time this has happened. He is unsure of the medications he takes daily but states he takes them, but his niece knows what they are for. He denies any LOC. He states for the last few months he has been having complaints of fatigue , sob with exertion. Denies any chf or copd, Last echo 11/2016 showed normal systolic function and EF 55-60%. Denies chest pain, sob, fever or chills. He states he follows with Dr. Grady and does not take his BP at home. Patient has been on Xarelto since September when he was in rehab for a sternal fracture and knee replacement, patient denies any history of AFIB. Review of Systems Except as stated in HPI: all other systems reviewed are Neg Past Family Social History Past Medical History HTN TB 1989 HLD Past Surgical History Right knee replacement Right lobectomy 1989 due to TB Reported Medications Reported Meds & Active Scripts Active Metoprolol Tartrate 25 Mg Tab 12.5 Mg PO Q12HR 30 Days Metoclopramide (Metoclopramide HCl) 10 Mg Tab 10 Mg PO ACHS 14 Days Famotidine 20 Mg Tab 20 Mg PO BID 30 Days Cardizem CD 24 HR (Diltiazem CD 24 HR) 240 Mg Caper 240 Mg PO DAILY 30 Days Xarelto (Rivaroxaban) 10 Mg Tab 10 Mg PO DAILY resume after colonscopy with close supervision with Dr. Grady and Ortho Dr. Shankar Pravastatin 40 Mg Tab 40 Mg PO HS Zestoretic (Lisinopril-Hctz) 20-12.5 Mg Tab 1 Tab PO DAILY Reported Ferrous Sulfate 325 Mg (65 Mg Iron) Tablet 325 Mg PO HS Allergies: Coded Allergies: No Known Allergies (Unverified , 12/22/16) Active Ordered Medications Current Medications Medications (Trade) Dose Ordered Sig/Stephen Route Start Time Stop Time Status Last Admin Sodium Chloride 2 ml 2 ml UNSCH PRN IVF 01/09/17 13:15 (NS 1000 ml Inj) 1,000 ml @ 150 mls/hr Q6H40M IV 01/09/17 16:18 UNV (NS Flush) 2 ml UNSCH PRN IV FLUSH 01/09/17 16:30 UNV (NS Flush) 2 ml BID IV FLUSH 01/09/17 21:00 UNV (Tylenol) 650 mg Q4H PRN PO 01/09/17 16:30 UNV (Zofran Inj) 4 mg Q6H PRN IVP 01/09/17 16:30 UNV (Narcan Inj) 0.4 mg UNSCH PRN IV 01/09/17 16:30 UNV (Pat-Colace) 1 tab BID PO 01/09/17 21:00 UNV (Milk Of Magnesia Liq) 30 ml Q12H PRN PO 01/09/17 16:30 UNV (Senokot) 17.2 mg Q12H PRN PO 01/09/17 16:30 UNV (Dulcolax Supp) 10 mg DAILY PRN RECTAL 01/09/17 16:30 UNV (Lactulose Liq) 30 ml DAILY PRN PO 01/09/17 16:30 UNV Family History Patient denies any family history of heart disease, or cancer. Social History Patient denies any tobacco, alcohol use or illicit drug use. Pt lives with his niece Physical Exam Vital Signs Vital Signs Date Time Temp Pulse Resp B/P Pulse Ox O2 Delivery O2 Flow Rate FiO2 01/09/17 15:43 103 16 143/85 97 01/09/17 13:10 Room Air 01/09/17 13:09 108 124/82 126 91/46 01/09/17 13:01 97.8 110 20 117/83 99 Physical Exam GENERAL: This is a well-nourished, well-developed patient, in no apparent distress. SKIN: No rashes, ecchymoses or lesions. Cool and dry. HEAD: Atraumatic. Normocephalic. EYES: Pupils equal round and reactive. Extraocular motions intact. ENT: Nose without bleeding, purulent drainage or septal hematoma. Airway patent. NECK: Trachea midline. No JVD or lymphadenopathy. CARDIOVASCULAR: Regular rate and rhythm without murmurs, gallops, or rubs. RESPIRATORY: Clear to auscultation. Breath sounds equal bilaterally. No wheezes , rales, or rhonchi. GASTROINTESTINAL: Abdomen soft, non-tender, nondistended. No hepato-splenomegaly , or palpable masses. No guarding. MUSCULOSKELETAL: Extremities without clubbing, cyanosis, or edema. No joint tenderness, effusion, or edema noted. No calf tenderness. NEUROLOGICAL: Awake and alert. Motor and sensory grossly within normal limits. Five out of 5 muscle strength in all muscle groups. Normal speech. Laboratory Laboratory Tests Test 01/09/17 13:10 White Blood Count 7.6 Red Blood Count 3.91 Hemoglobin 11.9 Hematocrit 36.4 Mean Corpuscular Volume 93.2 Mean Corpuscular Hemoglobin 30.6 Mean Corpuscular Hemoglobin 32.8 Concent Red Cell Distribution Width 13.9 Platelet Count 205 Mean Platelet Volume 8.1 Neutrophils (%) (Auto) 52.8 Lymphocytes (%) (Auto) 35.2 Monocytes (%) (Auto) 10.8 Eosinophils (%) (Auto) 0.9 Basophils (%) (Auto) 0.3 Neutrophils # (Auto) 4.0 Lymphocytes # (Auto) 2.7 Monocytes # (Auto) 0.8 Eosinophils # (Auto) 0.1 Basophils # (Auto) 0.0 CBC Comment DIFF FINAL Differential Comment Prothrombin Time 10.9 Prothromb Time International 1.0 Ratio Activated Partial 22.9 Thromboplast Time Sodium Level 136 Potassium Level 3.8 Chloride Level 100 Carbon Dioxide Level 27.9 Anion Gap 8 Blood Urea Nitrogen 21 Creatinine 2.01 Estimat Glomerular Filtration 41 Rate Random Glucose 128 Calcium Level 9.3 Magnesium Level 2.3 Total Creatine Kinase 148 Creatine Kinase MB 1.1 Troponin I LESS THAN 0.02 Result Diagram: 01/09/17 1310 01/09/17 1310 Imaging Last Impressions Chest X-Ray 01/09/17 1302 Signed Impressions: Service Date/Time: December 13:20 - CONCLUSION: No acute disease. No significant change has occurred. Jaskaran Back MD Lung Scan-VQ Nuclear Medicine 01/09/17 0000 Signed Impressions: Service Date/Time: December 14:55 - CONCLUSION: Unremarkable VQ scan of the left lung. Low probability for PE. Jaskaran Back MD Assessment and Plan Problem List: (1) Pre-syncope ICD Code: R55 Status: Acute (2) KENDAL (acute kidney injury) ICD Code: N17.9 Status: Acute Assessment and Plan 61 y/o male with a medical history of HTN, HLD, and questionable AFIB presented to the ED with complaints of almost passing out in his friends truck. Near syncope, no loc, suspected due to dehydration and medication use Last echo reviewed 11/2016 -Orthostatic BP ordered -IVF for hydration NS 150cc/hour. -Hold Lisinopril-HCTZ, metoprolol 12.5mg BID, Diltiazem CD 240mg Qday. -Monitor on telemetry. Acute kidney injury, creatine 2.0, base line 1.5, suspected due to dehydration -Cont IVF -BMP in AM HTN, chronic, currently hypotension -Hold all BP Meds for now -Monitor Vitals DVT prophylaxis: SCDs, hold Xarelto for now. Discussed Condition With Patient, and ED physician Mercedes Almonte Jan 09, 2017 16:50 Mona Quezada DO Jan 09, 2017 22:48
[2017-01-09] MEDS: SODIUM CHLOR 0.9% 1000 ML INJ 1,000 ML IV SCH (18:25)
[2017-01-09] MEDS: SODIUM CHLORIDE 0.9% FLUSH 10 ML FLUSH IV FLUSH SCH (20:12)
[2017-01-09] MEDS: FAMOTIDINE 20 MG TAB PO SCH (20:15)
[2017-01-09] MEDS: DOCUSATE SODIUM 50 MG/SENNA 8.6 MG TAB PO SCH (20:15)
[2017-01-09] MEDS ORDERED: PRAVASTATIN SOD 40 MG TAB PO SCH (21:00)
[2017-01-09] MEDS ORDERED: FERROUS SULFATE 325 MG (65 MG ELEMENTAL IRON) TAB PO SCH (21:00)
[2017-01-10] MEDS: SODIUM CHLOR 0.9% 1000 ML INJ 1,000 ML IV SCH ×3 (00:40→14:00)
[2017-01-10 03:37] VITALS: BP 122/79; PULSE 89; RESP 18; TEMP 98.3; O2SAT 100
[2017-01-10 07:02] LABS: BICARBONATE 29.3 MEQ/L (21.0-32.0); POTASSIUM 4.1 MEQ/L (3.5-5.1)
[2017-01-10 07:15] VITALS: PULSE 90
[2017-01-10 07:46] VITALS: BP 142/86; PULSE 88; RESP 19; TEMP 97.8; O2SAT 99
[2017-01-10] MEDS: DOCUSATE SODIUM 50 MG/SENNA 8.6 MG TAB PO SCH (09:08)
[2017-01-10] MEDS: SODIUM CHLORIDE 0.9% FLUSH 10 ML FLUSH IV FLUSH SCH (09:08)
[2017-01-10] MEDS: FAMOTIDINE 20 MG TAB PO SCH (09:08)
[2017-01-10 12:35] VITALS: BP 132/69; PULSE 102; RESP 18; TEMP 99; O2SAT 100
--- NOTE | 2017-01-10 15:51 | EKG ---
Date Performed: 01/09/2017 Time Performed: 13:06:57 PTAGE: 61 years EKG: SINUS TACHYCARDIA Diffuse nonspecific T wave changes Compared to prior tracing no significa nt change ABNORMAL ECG PREVIOUS TRACING : 12/22/2016 12.52 DOCTOR: Nayan Dietrich Interpretating Date/Time 01/10/2017 15:49:43
--- NOTE | 2017-01-10 16:11 | HHI.PR ---
Subjective Remarks Follow up for near syncope. Patient is currently doing well. No chest pain, fever, chills. Ambulated with me without any dyspnea, chest pain. No dizziness, lightheadedness. Objective Vitals Vital Signs Date Time Temp Pulse Resp B/P Pulse Ox O2 Delivery O2 Flow Rate FiO2 01/10/17 12:35 99.0 102 18 132/69 100 01/10/17 07:46 97.8 88 19 142/86 99 01/10/17 07:15 90 01/10/17 03:37 98.3 89 18 122/79 100 01/09/17 23:06 98.0 93 18 126/76 97 01/09/17 20:11 103 01/09/17 19:34 98.3 102 18 137/81 100 01/09/17 19:10 97 21 I/O 01/09/17 01/09/17 01/09/17 01/10/17 01/10/17 01/10/17 07:00 15:00 23:00 07:00 15:00 23:00 Output Total 625 ml Balance -625 ml Output Urine Total 625 ml Result Diagram: 01/09/17 1310 01/10/17 0558 Imaging Last Impressions Chest X-Ray 01/09/17 1302 Signed Impressions: Service Date/Time: December 13:20 - CONCLUSION: No acute disease. No significant change has occurred. Jaskaran Back MD Lung Scan-VQ Nuclear Medicine 01/09/17 0000 Signed Impressions: Service Date/Time: December 14:55 - CONCLUSION: Unremarkable VQ scan of the left lung. Low probability for PE. Jaskaran Back MD Objective Remarks GENERAL: AOX3, NAD. SKIN: Warm and dry. HEAD: Normocephalic. EYES: No scleral icterus. No injection or drainage. NECK: Supple, trachea midline. No JVD or lymphadenopathy. CARDIOVASCULAR: Mildly tachycardic and reg rhythm without murmurs, gallops, or rubs. RESPIRATORY: Breath sounds equal bilaterally. No accessory muscle use. GASTROINTESTINAL: Abdomen soft, non-tender, nondistended. MUSCULOSKELETAL: No cyanosis, or edema. BACK: Nontender without obvious deformity. No CVA tenderness. Procedures None. A/P Problem List: (1) Pre-syncope ICD Code: R55 Status: Acute (2) KENDAL (acute kidney injury) ICD Code: N17.9 Status: Acute Assessment and Plan 61 y/o male with a medical history of HTN, HLD, and questionable AFIB presented to the ED with complaints of almost passing out in his friends truck. Near syncope, no loc, suspected due to dehydration and medication use Last echo reviewed 11/2016 - Patient's symptoms are likely due to medications - more specifically BB and CCB. - Received IVF for hydration NS 150cc/hour. - BP within reasonable range without any medications. Hold Lisinopril-HCTZ, Diltiazem CD 240mg Qday. - Monitor on telemetry. - Mild tachycardia - Will continue metoprolol 12.5mg BID for tachycardia. Acute kidney injury, creatine 2.0, base line 1.5, suspected due to dehydration -Creatinine 2.01 --> 1.22. Hypertension - currently normotensive. No BP meds needed. Metoprolol 12.5mg BID for mild tachycardia (heart rate 105-106). Full code. Ambulation. Discharge patient to home Condition on discharge: Improved Regular Diet as tolerated Ad Mildred activity Medications: - Discontinue Xarelto, Cardizem, Lisinopril-HCTZ and Reglan. - Please note - Patient has no history of DVT, PE or Afib. Per chart review, Xarelto was supposed to be a short term medications last hospitalization (rehab) . - Also no indications to use Cardizem 240mg Qday. I suspect combined use of beta joann and calcium channel joann lowers his heart too low. - If BP medications are required, consider Norvasc 5mg Qday or switch metoprolol to Carvedilol. - Lisinopril is not a first line BP medications for NON-Diabetic Americans. Continued Medications: Famotidine 20 Mg Tab 20 MG PO BID Days 30 TAB Ferrous Sulfate 325 Mg (65 Mg Iron) Tablet 325 MG PO HS Nutritional Supplement #30 Ref 0 TAB Metoprolol Tartrate 25 Mg Tab 12.5 MG PO Q12HR Days 30 TAB Pravastatin 40 Mg Tab 40 MG PO HS Cholesterol Management #30 Ref 0 TAB Discontinued Medications: Diltiazem CD 24 HR (Cardizem CD 24 HR) 240 Mg Caper 240 MG PO DAILY Days 30 CAP Lisinopril-Hctz (Zestoretic) 20-12.5 Mg Tab 1 TAB PO DAILY Blood Pressure Management #30 Ref 0 TAB Metoclopramide 10 Mg Tab 10 MG PO ACHS Days 14 TAB Rivaroxaban (Xarelto) 10 Mg Tab 10 MG PO DAILY resume after colonscopy with close supervision with Dr. Grady and Ortho Dr. Shankar Blood Clot Prevention #10 Ref 0 TAB Follow-up with primary care physician within one week. Mona Quezada DO Jan 10, 2017 4:11 pm
== END 2017-01-10 18:54 | disposition home or self-care (01) ==
LOC: NEPE 12:59 → NEDA 16:20 → NEPGCP 18:20
PROVIDERS: ADMIT Hospitalist; ATTEND Hospitalist
DX: R55 Syncope and collapse (principal); N17.9 Acute kidney failure, unspecified; I10 Essential (primary) hypertension; R94.31 Abnormal electrocardiogram [ECG] [EKG]
CPT/HCPCS: 71010; 78582; 80048; 82550; 82552; 83735; 84484; 85025; 85610; 85730; 93005; 96360; 96361; 99285; A9540; A9567; G0378; J7030